=== PATIENT | female | born 1980 | race Caucasian/White ===

== ENCOUNTER 2017-08-23 16:07 | Emergency (ER) | payer MEDICAID, OTHER ==
[2017-08-23] MEDS ORDERED: NITROGLYCERIN 0.4 MG TAB SL PRN (16:44)
[2017-08-23] MEDS ORDERED: SODIUM CHLORIDE 0.9% FLUSH 10 ML SOL IV PRN (16:44)
[2017-08-23] MEDS ORDERED: ASPIRIN 81 MG CHEWABLE CTB PO STA (16:44)
[2017-08-23] MEDS ORDERED: SODIUM CHLORIDE 0.9% 1000ML 1,000 ML IV SCH (16:45)
[2017-08-23] MEDS ORDERED: ASPIRIN 81 MG CHEWABLE CTB ONE (16:46)
[2017-08-23 17:08] VITALS: RESP 18; TEMP 97
[2017-08-23 17:13] LABS: BASOPHILS % (AUTO) 1 % (0-3); EOSINOPHILS % (AUTO) 2 % (0-9); HEMATOCRIT 40 % (35-47); HEMOGLOBIN 13.6 gm/dl (12.0-15.5); LYMPHOCYTES % (AUTO) 20.4 % (10-50); MEAN CORPUSCULAR HEMOGLOBIN 29.7 pg (27.0-32.0); MEAN CORPUSCULAR HGB CONC 33.9 gm/dl (32.0-36.0); MEAN CORPUSCULAR VOLUME 88 fL (81-99); MONOCYTES % (AUTO) 8.3 % (0-12); NEUTROPHILS % (AUTO) 68.3 % (37-80)
[2017-08-23 17:29] LABS: ALBUMIN 3.3 gm/dl (3.4-5.0); ALKALINE PHOSPHATASE 100 IU/L (46-116); ALT 21 IU/L (14-63); AST 13 IU/L (15-37); BILIRUBIN,TOTAL 0.2 mg/dl (0.2-1.0); BLOOD UREA NITROGEN 12 mg/dl (7-18); CALCIUM 7.9 mg/dl (8.5-10.1); CARBON DIOXIDE 27.1 mEq/L (21-32); CHLORIDE 102 mMol/L (98-107); CREATINE KINASE 67 U/L (26-192); CREATININE 0.98 mg/dl (0.60-1.00); GLOM FILT RATE 64 mL/min (>60); GLUCOSE 88 mg/dl (74-106); SODIUM 137 mMol/L (136-145); TROP I < 0.017 ng/ml (0.000-0.056)
[2017-08-23] MEDS ORDERED: KETOROLAC TROMETHAMINE 30 MG/ML SOL IM ONE (17:35)
[2017-08-23 17:40] LABS: INR 0.9 (0.86-1.12)
[2017-08-23] MEDS ORDERED: KETOROLAC TROMETHAMINE 30 MG/ML SOL IV ONE (17:54)
[2017-08-23] MEDS ORDERED: KETOROLAC TROMETHAMINE 30 MG/ML SOL ONE (17:56)
[2017-08-23 18:55] VITALS: O2SAT 100
[2017-08-23 18:56] VITALS: PULSE 84
[2017-08-23 18:57] VITALS: BP 125/76
== END 2017-08-23 18:45 | disposition home or self-care (01) | DRG 206 ==
LOC: ED 16:07
DX: M94.0 Chondrocostal junction syndrome [Tietze] (principal); R06.02 Shortness of breath
CPT/HCPCS: 36415; 71045; 80053; 82550; 83880; 84484; 84703; 85025; 85610; 85730; 93005; 96365; 96374; 99283; 99285; J1885